=== PATIENT | female | born 1965 | race Asian ===

== ENCOUNTER 2016-03-15 14:36 | Day surgery (SDC) | payer OTHER ==
[~2016-03-15] VITALS: Ht 172.7 cm; Wt 74.7 kg
[2016-03-15] MEDS ORDERED: MVI (15:36)
[2016-03-15] MEDS ORDERED: EFFEXOR (15:36)
[2016-03-15] MEDS ORDERED: DICYCLOMINE (15:36)
[2016-03-15] MEDS ORDERED: CLARITIN (15:36)
[2016-03-15 15:45] VITALS: Ht 172.7 cm; Wt 74.7 kg
[2016-03-15] MEDS ORDERED: LIDOCAINE 2% (SDV) 5 ML INJ ONE (16:14)
[2016-03-15] MEDS ORDERED: PROPOFOL 40 ML ONE (16:14)
[2016-03-15] MEDS ORDERED: PROPOFOL 20 ML ONE (16:43)
[2016-03-15 17:25] VITALS: BP 118/82; PULSE 77; RESP 16
--- NOTE | 2016-03-15 17:40 | GILP ---
DATE OF PROCEDURE: 03/15/2016 NAME OF PROCEDURE: Colonoscopy and biopsy. SURGEON: Hardik Grey MD PREOPERATIVE DIAGNOSES: 1. Chronic diarrhea. 2. Rectal bleeding. POSTOPERATIVE DIAGNOSES 1. Colonoscopy all the way to the cecum. 2. Poor prep making the exam somewhat suboptimal. 3. Internal hemorrhoids. 4. Random biopsies were taken to rule out microscopic colitis. INDICATION FOR THE PROCEDURE: Ms. Juaquin Prather is a 50-year-old female patient who has chronic diarr hea. She also had a history of rectal bleeding. The patient was scheduled for colonoscopy for furt her evaluation. The procedure and possible complications were well explained to the patient, she understood and cons ented to the procedure. DESCRIPTION OF PROCEDURE: Under the influence of anesthesia, the colonoscope was carefully introduc ed in the rectum and under direct vision, it was advanced all the way to the cecum. FINDINGS: The patient had a poor prep making the exam somewhat suboptimal. The patient was noted t o have internal hemorrhoids. Random biopsies were taken to rule out microscopic colitis. The patient tolerated the procedure very well and there was no complication from the procedure. At the end of the procedure, she was awake with stable vital signs and she was [facility]. IMPRESSION: 1. Colonoscopy all the way to the cecum. 2. Poor prep making the exam somewhat suboptimal. 3. Internal hemorrhoids. 4. Random biopsies were taken to rule out microscopic colitis. PLAN 1. Await histopathology report. 2. Bentyl p.r.n. for diarrhea. Dictated By: HARDIK SHAIKH/NTS Conf#: [id number] DID#: [id number]
== END 2016-03-15 18:29 | disposition home or self-care (01) ==
LOC: GIL 14:36
PROVIDERS: ATTEND Internal Medicine Gastroenterology
DX: K64.8 Other hemorrhoids (principal)
CPT/HCPCS: 45380; 88305; Z7610